=== PATIENT | female | born 1995 | race African-American/Black ===

== ENCOUNTER 2020-01-23 13:26 | Observation (INO) | payer MEDICAID ==
[~2020-01-23] VITALS: Ht 170.2 cm; Wt 77.1 kg
[2020-01-23] MEDS ORDERED: PREN-96 PO (15:17)
[2020-01-23] MEDS ORDERED: SERT-376 PO (15:18)
[2020-01-23 15:40] LABS: Basophils # (auto) 0 10 ^3/uL (0-0.2); Basophils % (auto) 0.2 % (0.0-2.0); Eosinophils # (auto) 0.1 10 ^3/uL (0-0.8); Hemoglobin 11.5 g/dL (12.2-16.2)
[2020-01-23 15:41] LABS: Hematocrit 34.9 % (36.0-46.0); Lymphocytes # (auto) 1.5 10 ^3/uL (0.4-5.4); Lymphocytes % (auto) 13.3 % (10.0-50.0); Mean Corpuscular Hemoglobin 26.6 pg (28.0-32.0); Mean Corpuscular Hgb Conc. 32.9 g/dL (32.0-36.0); Mean Corpuscular Volume 80.8 fL (80.0-100.0); Monocytes # (auto) 0.5 10 ^3/uL (0-1.3); Monocytes % (auto) 4.4 % (0.0-12.0); Neutrophils # (auto) 9.1 10 ^3/uL (1.6-8.6); Neutrophils % (auto) 81.1 % (37.0-80.0); Platelet Count (auto) 190 10^3/uL (140-450); Red Blood Cells 4.32 10^6/uL (4.0-5.20); Red Cell Distribution Width 17.2 % (11.8-14.3); White Blood Cell 11.2 10^3/uL (4.4-10.8)
--- NOTE | 2020-01-23 16:00 | NUR ---
PT escorted back to ER, FHT reactive @ 125 with accels, category 1, noted 1 uc/45min for 60sec.PT cleared from OB by Dr Chandler.
[2020-01-23 16:01] LABS: Acetaminophen < 2.0 ug/mL (10-30); Albumin 2.5 g/dL (3.4-5.0); Anion Gap 9 (5-15); Blood Alcohol < 3.0 mg/dL (0-5); Blood Urea Nitrogen 4 mg/dL (7-18); Calcium 8.4 mg/dL (8.5-10.1); Carbon Dioxide 20 mmol/L (21-32); Chloride 109 mmol/L (98-107); Glucose 97 mg/dL (74-106); Magnesium 2.1 mg/dL (1.6-2.6); Potassium 3.2 mmol/L (3.5-5.1); Salicylate < 1.7 mg/dL (2.8-20.0); Sodium 138 mmol/L (136-145)
[2020-01-23 16:05] LABS: Alanine Aminotransferase 10 U/L (13-56); Alkaline Phosphatase 154 U/L (45-117); Aspartate Aminotransferase 15 U/L (15-37); BUN/Creatinine Ratio 5.5; Bilirubin, Total 0.5 mg/dL (0.2-1.0); GFR African American 124 mL/min; GFR Non-African American 102 mL/min; Total Protein 6.6 g/dL (6.4-8.2)
--- NOTE | 2020-01-23 16:10 | NUR ---
Spoke with Dr Govea, PT cleared from OB by Dr Chandler and Dr Chandler suggest for PT to have an OB complete Ultrasound.
[2020-01-27 08:02] VITALS: BP 118/61
== END 2020-01-23 15:50 | disposition still patient (30) ==
LOC: EDBD 13:26 → ER 13:26 → LDRP 14:04
PROVIDERS: ADMIT Specialist; ATTEND Specialist
DX: O99.343 Other mental disorders complicating pregnancy, third trimester (principal); R45.851 Suicidal ideations; O62.9 Abnormality of forces of labor, unspecified; F41.9 Anxiety disorder, unspecified; F32.9 Major depressive disorder, single episode, unspecified; O25.13 Malnutrition in pregnancy, third trimester; E87.6 Hypokalemia; O99.283 Endocrine, nutritional and metabolic diseases complicating pregnancy, third trimester; E44.0 Moderate protein-calorie malnutrition; Z3A.39 39 weeks gestation of pregnancy; Z79.899 Other long term (current) drug therapy
CPT/HCPCS: 36415; 59025; 80053; 80320; 80329; 81002; 83735; 85025; 99285; G0378